=== PATIENT | female | born 1985 | race African-American/Black ===

== ENCOUNTER 2018-12-11 04:39 | Emergency (ER) | payer OTHER | END 2018-12-11 10:35 | disposition home or self-care (01) | LOC: JER 04:39 ==

== ENCOUNTER 2019-07-10 05:22 | Emergency (ER) | payer OTHER ==
[2019-07-10 06:31] VITALS: BMI 26.5
--- NOTE | 2019-07-10 07:07 | PDOC ---
History of Present Illness - General Chief Complaint: Pain Stated Complaint: KIDNEY STONES - History of Present Illness Initial Comments: The pt is a 33F w/ a history of HTN and known b/l nephrolithiasis who presents for evaluation of 4 hours of left flank pain. The pain is achy, radiates to her back, has been constant, and was not alleviated by T3. She endorses associated N /V. She states that this pain is typical of her kidney stone pain. She is unsure of hematuria, pt reports currently being on her menses She denies fevers/chill, dysuria, abdominal pain, diarrhea, blood in her stool, or changes in sensation. 07/10/19 07:20 Past History - Past Medical History Allergies/Adverse Reactions: Allergies Allergy/AdvReac Type Severity Reaction Status Date / Time No Known Allergies Allergy Verified 12/11/18 04:56 Home Medications: Ambulatory Orders Oxycodone HCl/Acetaminophen [Percocet 5-325 mg Tablet] 1 tab PO Q6H PRN #4 tablet MDD 2 12/11/18 Tamsulosin HCl [Flomax] 0.4 mg PO DAILY #7 cap.er.24h 12/11/18 Tamsulosin HCl [Flomax] 0.4 mg PO DAILY #7 cap.er.24h 12/11/18 COPD: No Kidney Stones: Yes - Immunization History Immunization Up to Date: Yes - Psycho Social/Smoking Cessation Hx Smoking History: Never smoked Have you smoked in the past 12 months: No Hx Alcohol Use: No Drug/Substance Use Hx: No Review of Systems - Review of Systems Able to Perform ROS?: Yes Comments:: GENERAL/CONSTITUTIONAL: No fever or chills. No weakness HEAD, EYES, EARS, NOSE AND THROAT: No change in vision. No change in hearing. No sore throat CARDIOVASCULAR: No chest pain or shortness of breath RESPIRATORY: Denies cough, hemoptysis GASTROINTESTINAL: +Nausea/vomiting; denies diarrhea or constipation GENITOURINARY: No dysuria, frequency, or change in urination MUSCULOSKELETAL: No joint or muscle swelling or pain NEUROLOGIC: No headache, vertigo, loss of consciousness, or change in strength/ sensation ENDOCRINE: No increased thirst. No abnormal weight change HEMATOLOGIC/LYMPHATIC: No anemia, easy bleeding, or history of blood clots ALLERGIC/IMMUNOLOGIC: No hives or skin allergy 12/28/19 07:26 Is the patient limited O[place]i proficient: No *Physical Exam - Vital Signs Last Vital Signs Temp Pulse Resp BP Pulse Ox 98.2 F 87 18 143/101 H 100 07/10/19 06:10 07/10/19 06:10 07/10/19 06:10 07/10/19 06:10 07/10/19 06:10 - Physical Exam GENERAL: Awake, alert, and oriented to person/place/time, in no acute distress HEAD: No signs of trauma, normocephalic, atraumatic EYES: PERRLA, EOMI, sclera anicteric, conjunctiva clear ENT: Hearing grossly normal, nares patent, oropharynx clear without exudates. Moist mucosa LUNGS: No distress, speaks in full sentences, clear to auscultation bilaterally HEART: Regular rate and rhythm, normal S1 and S2, no murmurs appreciated, peripheral pulses normal and equal bilaterally ABDOMEN: Soft, nontender, normoactive bowel sounds. No guarding, no rebound. Left flank TTP, no CVA TTP EXTREMITIES: Normal inspection, Normal range of motion, no edema. No clubbing or cyanosis NEUROLOGICAL: Cranial nerves II through XII grossly intact. Normal speech, normal gait, no focal sensorimotor deficits SKIN: Warm, Dry 07/10/19 07:25 ED Treatment Course - LABORATORY CBC & Chemistry Diagram: 07/10/19 07:17 07/10/19 07:17 - RADIOLOGY Radiograph Interpretation: CT/SPIRAL- RENAL-STONE CT COMPARISON: 12/11/2018 The liver, spleen, pancreas and adrenal glands are unremarkable. No gallstones are identified. There is no evidence of retroperitoneal lymphadenopathy or abdominal aortic aneurysm. There is moderate left hydronephrosis secondary to a 4 mm calculus proximal left ureter. There is also a 4 mm calculus left renal pelvis. There are several other nonobstructing calculi seen in the left kidney. The right kidney is unremarkable Uterus is globular suggestive of myomatous uterus The urinary bladder is unremarkable. There is no evidence of bowel obstruction. There are no inflammatory changes of the colon. No fluid collections are identified. Impression: 4 mm obstructing calculus proximal left ureter with moderate left hydronephrosis.. Other left renal calculi are also identified. These findings are relatively unchanged from the prior study 12/11/2018 07/10/19 10:30 Medical Decision Making - Medical Decision Making The pt is a 33F w/ a history of HTN and known b/l nephrolithiasis who presents for evaluation of 4 hours of left flank pain typical of her previous nephrolithiasis symptoms. ED Course CMP, CBC, UA, UCx, Upreg Ofirmev, IVF, and Zofran for symptomatic relief CT spiral to eval for obstructing stone Will re-evaluate 07/10/19 08:04 Upreg neg No SVEN Will give Toradol 15mg IV once CT pending 07/10/19 08:37 CT w/ 4mm obstructing stone, will likely pass Plan for D/C w/ Urology f/u, pt has own Urologist Discharge instructions and return precautions given Patient in agreement and verbalized understanding Dispo: Home 07/10/19 10:30 Discharge - Discharge Information Problems reviewed: Yes Clinical Impression/Diagnosis: Kidney stone on left side Condition: Stable Disposition: HOME - Admission No - Follow up/Referral Referrals: Radames Servin [Primary Care Provider] - - Patient Discharge Instructions Additional Instructions: You were seen in the Emergency Department for evaluation of a kidney stone. You have a 4mm obstructing stone which will likely pass. For pain you may take Naproxen 500mg every 12 hours as needed OR Ibuprofen 600mg every 8 hours as needed. Review the handout provided at discharge. Follow up with your Urologist this week. Return to the Emergency Department if you develop fevers, chest pain, trouble breathing, worsening symptoms, or any new/concerning symptoms. - Post Discharge Activity Work/Back to School Note: Back to Work
[2019-07-10] MEDS ORDERED: ONDANSETRON 4 MG/2 ML VIAL IVPUSH ONE (07:14)
[2019-07-10] MEDS ORDERED: SODIUM CHLORIDE 0.9% 500 ML INFUS.BAG IV ONE (07:14)
[2019-07-10] MEDS ORDERED: ACETAMINOPHEN 1000 MG/100 ML VIAL (NON FORMULARY) IVPB ONE (07:14)
[2019-07-10] MEDS ORDERED: ONDANSETRON 4 MG/2 ML VIAL ONE (07:23)
[2019-07-10] MEDS ORDERED: ACETAMINOPHEN INJECTION 100 ML IVPB ONE (07:23)
[2019-07-10 07:45] LABS: BASO % 0.9 % (0-2.0); HEMATOCRIT 39.3 % (32.4-45.2); HEMOGLOBIN 13.7 GM/dL (10.7-15.3); LYMPH % 17.1 % (8-40); MCH 28.8 pg (25.7-33.7); MCHC 34.9 g/dl (32.0-36.0); MEAN CELL VOLUME 82.5 fl (80-96); MEAN PLT VOLUME 10.7 fl (7.5-11.1); MONO % 5.9 % (3.8-10.2); NEUT % 75.1 % (42.8-82.8); PLATELET COUNT 188 K/MM3 (134-434); RBC 4.76 M/mm3 (3.60-5.2); WHITE BLOOD COUNT 9.6 K/mm3 (4.0-10.0)
[2019-07-10 08:04] LABS: ALBUMIN 3.9 g/dl (3.4-5.0); BILIRUBIN,TOTAL 0.6 mg/dL (0.2-1); CALCIUM 9.2 mg/dL (8.5-10.1); POTASSIUM 3.3 mmol/L (3.5-5.1); TOT PROT 7.3 g/dl (6.4-8.2)
[2019-07-10 08:13] LABS: EPI CELLS 1.2 /HPF (0-5/HPF); HYALINE CASTS 0 /lpf (0-8); PH,URINE 7.5 (5.0-8.0); URINE APPEARANCE TURBID; URINE BACTERIA 42.1 /hpf (NEGATIVE); URINE BILIRUBIN NEGATIVE (NEGATIVE); URINE COLOR YELLOW; URINE GLUCOSE (UA) NEGATIVE (NEGATIVE); URINE KETONE NEGATIVE (NEGATIVE); URINE LEUK ESTERASE NEGATIVE (NEGATIVE); URINE NITRITE NEGATIVE (NEGATIVE); URINE PROTEIN NEGATIVE (NEGATIVE); URINE RBC 10 /hpf (0-4); URINE UROBILINOGEN 0.2 mg/dL (0.2-1.0); URINE WBC 2 /hpf (0-5)
[2019-07-10] MEDS ORDERED: KETOROLAC TROMETHAMINE 15 MG/ML VIAL IVPUSH ONE (08:33)
[2019-07-10] MEDS ORDERED: KETOROLAC TROMETHAMINE 15 MG/ML VIAL ONE (08:34)
[2019-07-10] MEDS ORDERED: POTASSIUM CHLORIDE TABS 20 MEQ TABLET.ER (FP) PO ONE ×2 (10:06→10:52)
--- NOTE | 2019-07-10 10:15 | PDOC ---
Attending Attestation - Resident Resident Name: Alejandro Leon - HPI HPI: 07/10/19 10:07 33 y/o female here in ED for evaluation of left flank pain that awakened her at 3am, Pain was severe so she came into ED for evaluation. Pt with h/o kidney stones has had 3 urological procedures in the past t treat these stones. Pt denies fever, chest pain, sob, abdominal pain and is non toxic appearing. - Physicial Exam PE: 07/10/19 10:08 General: well nourished, non toxic appesaring 33 y/o female seen and examined at bedside HEENT: NCAT, ISMAEL Neck: supple Lungs: + bs basilio cta Heart: S1s2 regular Abd: + bs abd soft no guarding or tenderness Ext: nl no edema Back: mild left cva tenderness with palpation Neuro: alert and oriented x3, kayy no focal deficts - Medical Decision Making 07/10/19 10:11 33 y/o female here in ED c/o left flank pain,starting 3am, ct confirms 4mm left kidney stone with mild hydro no significant change from 12/11/18. Pt was treated with toradol and IV tylenol and pain is controlled at present, only slight ache. Pt is stable for dc home with out pt f/u with Dr. Ritter of urology. Pt to return to ED for fever, increased pain in back, nausea, vomiting or as needed,Pt to inc fluid intake, PT agrees with this dc plan,Pt given opportunity to ask and have all questions answered prior to dc home.
[2019-07-10 10:43] VITALS: BP 118/84; PULSE 72; TEMP 98.1
== END 2019-07-10 11:00 | disposition home or self-care (01) ==
LOC: JER 05:22
PROC: 3E033NZ Introduction of Analgesics, Hypnotics, Sedatives into Peripheral Vein, Percutaneous Approach (ICD-10-PCS; principal; 2019-07-10)
PROC: 3E0333Z Introduction of Anti-inflammatory into Peripheral Vein, Percutaneous Approach (ICD-10-PCS; 2019-07-10)
PROC: 3E033GC Introduction of Other Therapeutic Substance into Peripheral Vein, Percutaneous Approach (ICD-10-PCS; 2019-07-10)
DX: N13.2 Hydronephrosis with renal and ureteral calculous obstruction (principal); Z87.442 Personal history of urinary calculi; I10 Essential (primary) hypertension
CPT/HCPCS: 36415; 74176-TC; 80053; 81003; 84703; 85025; 87086; 99283-25; J0131